=== PATIENT | male | born 1955 | race Caucasian/White ===

== ENCOUNTER 2016-12-21 12:09 | Emergency (ER) | payer BC ==
[~2016-12-21] VITALS: Ht 175.3 cm; Wt 149.7 kg
[~2016-12-21 12:09] MED LIST: ATORVASTATIN CA10 M1 PO; BACTRIM DS 8001 TA1 PO; CARVEDILOL6.25 M1 PO; CLINORIL GENER200 MG PO; FLEXERIL10 MG PO; FUROSEMIDE 20MG20 MG PO; HCTZ/LISINOPRIL1 TA3 PO; ISOSORBIDE MONO30 MG PO; LORTAB 5/500 501 TAB PO; NAPROSYN 500MG500 MG PO; PROAIR HFA0.09 MG/AC IH; PROVENTIL0.09 MG/A1 IH; VITAMIN E 400400 IU PO
--- NOTE | 2016-12-21 12:28 | Emergency Room Report ---
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 Clinical Suspician of Infection? Mental Status: Sepsis Risk: Have you (or family members/close friends) recently traveled outside the [place]? If Yes, where/when: Have you had exposure to infectious disease within the past month? TB? Other? Specify: Source RN notes reviewed, family, EMS Exam Limitations clinical condition Comment Brought to the ED by the [facility] from [place] ...he was at Father -in-law's home reportedly eating some bologna, sitting on couch and suddenly became unresponsive. No shaking, no incontinence of urine or bowels and when EMS arrived he had a Glucose of 186, BP was normal, O2 sat was normal but pt. was unresponsive. Given a dose of Narcan but no response from that either and was brought to this ED. Here, O2 sat is 95% on 2 L Nasal cannula, respirations are slow and unlabored, Pupils are reactive and when trying to open his eyes, there is some resistance and the eyes tend to roll back. No focal neurological defect, no upgoing toes and when trying to drop hand on face it falls to bhe top and back of his head. He does have a history of HTN and recently had a heart cath which was reportedly normal by his . Cardiac Chest Pain Chest pain indicative of cardiac No ALLERGIES Coded Allergies: No Known Allergies (12/21/16) Home Medications Active Scripts SULFAMETHOXAZOLE W/TRIMETHOPRI (Bactrim Ds Tab) 1 TAB PO BID #14 TAB Prov: 12/11/15 ALBUTEROL (Proventil Hfa Inhaler) 1-2 PUFF IH Q4-6H PRN #1 CAN Ref 5 Prov: 12/11/15 Cyclobenzaprine Hcl (Flexeril) 10 MG PO TID #15 TAB Prov: 03/23/13 Acetaminophen W/ Hydrocodone (Lortab 5/500) 1 TAB PO Q6HP #10 TAB Prov: 03/23/13 Reported Medications Vitamin E (Vitamin E 400 UNITS) 400 IUNITS PO DAILY Isosorbide Mononitrate (Isosorbide Mononitrate ER) 30 MG PO BID #60 LISINOPRIL/HYDROCHLOROTHIAZIDE (Lisinopril-Hctz 20-12.5 MG Tab) 1 TAB PO DAILY #90 Furosemide (Furosemide) 20 MG PO DAILY #90 Atorvastatin Calcium 10 MG PO QHS #90 Carvedilol 6.25 MG PO BID #180 Sulindac (Clinoril Generic 200MG Tab) 200 MG PO BID #60 Albuterol Sulfate (Proair Hfa) 1 PUFF IH Q6HP PRN BREATHING #9 History Medical History General Angina: No OR: No Hypertension? Yes Hyperlipidemia? Yes CHF? No DVT? No PE? No COPD? No Asthma? No Anemia? No Gastric ulcers? Yes Hernia? Yes Thyroid Problems? No Hypothyroidism? No CVA? No Seizures? No Diabetes? No End Stage Renal Disease? No UTI? No Stones? No BPH? No GB Disease: No Nephritic Syndrome? No Asplenia? No Hepatitis? No Sickle Cell Disease? No Arthritis? No Migraines? No Cataracts? No Glaucoma? No MRSA? No TB? No Anxiety? No Depression? No Cancer? No More? No Immunization Hx DT/Tetanus 5-10 YRS Flu NEVER Pneumonia NEVER Surgical Hx Previous Surgery?Y HERNIA REPAIR c TUBE PLAC 2 INGROWN TOENAIL REMOVED HEART CATH Family History Family Hx Diabetes Yes CAD Yes Hypertension Yes Hyperlipidemia Yes Cancer Yes TB No Social History Smoking Hx Packs/day N/A Alcohol Alcohol: No Review of Systems All Other Systems Reviewed and Negative Constitutional see HPI Eyes see HPI Respiratory no symptoms reported Cardiovascular see HPI Psychiatric/Neurological see HPI Physical Exam Vital Signs Vital Signs Date Time Temp Pulse Resp B/P Pulse O2 O2 Flow FiO2 Ox Delivery Rate 12/21 1315 18 12/21 1300 70 20 128/79 98 2 12/21 1230 97.8 66 18 151/79 100 (Aminah PINTO,Chau) General Appearance no apparent distress, obese Eye Exam - bilateral eye PERRL, bilateral eye EOMI, bilateral eye other (corneal reflex positive) Respiratory Status No: respiratory distress. Lung Sounds bilateral: normal breath sounds. Cardiovascular normal exam, regular rate/rhythm Rectal normal rectal tone, Rectal temp=97.6 Neurologic pt. does not respond to verbal stimuli nor chest rub but I can not detect any focal motor deficit. No decerebrate or decorticate posturing Medical Decision Making LABS/Meds/Orders Pt receiving controlled substance in ED? No Results/Orders Laboratory Tests 12/21/16 1305: ABG pH 7.35, ABG pCO2 (Temp Corrct 42.0, ABG pO2 (Temp Correct 45.0 *L, ABG HCO3 23.0, ABG Total CO2 24.0, ABG O2 Sat (Calculated) 82 *L, ABG Base Excess -2.9 L , Christian Test ACCEPTABLE, Blood Gas Comments LEFT RADIAL 12/21/16 1230: Sodium 140, Potassium 4.9, Chloride 106, Carbon Dioxide 30, BUN 18, Creatinine 1.3, Estimated Creat Clear 130, Estimated GFR (MDRD) 57, Glucose 138 H, Calcium 9.2, Total Bilirubin 0.5, AST 43 H, ALT 68, Alkaline Phosphatase 73, Creatine Kinase 71, CK-MB (CK-2) Rel Index 1.0, CK and CKMB Interp 0.7, Troponin I < 0.02 , Total Protein 7.3, Albumin 3.3 L, Globulin 4.0 H, Albumin/Globulin Ratio 0.8 L, PT 11.1, INR 1.04, APTT 21.9 L, WBC 8.4, RBC 4.81, Hgb 16.2, Hct 56.8 H, MCV 117.2 H, RDW 15.5, Plt Count 264, MPV 12.7 H, Gran % 67.9, Gran # 5.7, Lymphocytes % 19.0, Monocytes % 6.0, Eosinophils % 5.7, Basophils % 1.4, Lymphocytes # 1.6, Monocytes # 0.5, Eosinophils # 0.5 H, Basophils # 0.1, PUBS MCHC 28.7 L, MCH 33.7 H, Opiates Screen NEGATIVE, Urine Methadone Screen NEGATIVE, Barbiturates NEGATIVE, Phencyclidine Screen NEGATIVE, Amphetamines Screen NEGATIVE, Benzodiazepines Screen NEGATIVE, Cocaine Screen NEGATIVE, Marijuana (THC) Screen NEGATIVE, Urine Color YELLOW, Urine Appearance CLEAR, Urine pH 6.0, Ur Specific [place] 1.015, Urine Protein NEGATIVE, Urine Ketones NEGATIVE, Urine Blood NEGATIVE, Urine Nitrate NEGATIVE, Urine Bilirubin NEGATIVE , Urine Urobilinogen 0.2, Ur Leukocyte Esterase NEGATIVE, Urine RBC OCC, Urine WBC NONE, Ur Squamous Epith Cells NONE, Urine Bacteria TRACE, Hyaline Casts OCC, Urine Glucose NEGATIVE Current Medication Orders Sig/Buck Start time Last Medication Dose Route Stop Time Status Admin Aspirin 324 MG ONCE ONE 12/21 1315 DC PO 12/21 1316 Nitroglycerin 0.4 MG [id number] PRN 12/21 1315 AC 12/21 SL 1315 Aspirin 0 .STK-MED ONE 12/21 1311 DC .ROUTE Nitroglycerin 0 .STK-MED ONE 12/21 1311 DC SL Sodium Chloride 10 ML PRN PRN 12/21 1230 AC IV 12/22 1227 Orders Procedure Date/time Status DIET-NOTHING BY MOUTH 12/21 D Active ARTERIAL BLOOD GAS REQUEST 12/21 1232 Active PROTIME/PARTIAL PROTIME 12/21 1228 Complete LACTIC ACID 12/21 1228 Active DRUG ABUSE SCREEN (10) 12/21 1228 Complete CHEST-PORTABLE 12/21 1227 Active IV SALINE LOCK 12/21 1227 Active ELECTROCARDIOGRAM REQUEST 12/[address] HEAD REQ 12/21 1215 Complete URINARY CATHETER INSERT 12/21 1215 Active SEWAGE TREATMENT PLANT OPERATOR 12/21 1215 Active URINALYSIS/COMPLETE 12/21 1215 Complete CBC WITH AUTO DIFF 12/21 1215 Complete CARDIAC ENZYMES 12/21 1215 Complete CHEM 12 PROFILE 12/21 1215 Complete 12 LEAD EKG-KEELY (INITIAL) 12/21 UNK Active Departure Departure Time of Disposition 1337 Disposition Still a Patient Clinical Impression Primary Impression: Chest pain Qualifiers: Chest pain type: precordial chest pain Qualified Code: R07.2 - Precordial pain Secondary Impressions: Hypertension Qualifiers: Hypertension type: essential hypertension Qualified Code: I10 - Essential (primary) hypertension Syncope Qualifiers: 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 Brewer by Dr. Polanco Discharge Counseling Counseled pt/family regarding diagnosis, test results, follow up needs ED Critical Care Critical Care No If Critical Care minutes are documented, the time involved in the performance of seperately reportable procedures was not counted toward critical care time documented. I directly delivered medical care to this critically ill and/or injured patient. Timely evaluation and treatment was necessary to address the significant organ system(s) dysfunction present in this patient. at [id number]
[2016-12-21 12:30] VITALS: BP 151/79
[2016-12-21 12:36] LABS: LYMPH # 1.6 K/mm3 (0.7-4.5)
[2016-12-21 12:46] LABS: URINE BILIRUBIN - DIPSTICK NEGATIVE (NEG); URINE BLOOD NEGATIVE (NEG)
--- NOTE | 2016-12-21 12:51 | RADIOLOGY REPORT PS360 ---
CT HEAD W/O CONTRAST HISTORY: UNRESPONSIVE ORDERING PHYSICIAN: Chau Burr MD PATIENT AGE: 61 years COMPARISON: None TECHNIQUE: Axial images obtained without contrast. Brain and bone windows reviewed. FINDINGS: No midline shift, mass effect, intracranial hemorrhage, hydrocephalus, or extra-axial fluid collection is evident. Nonspecific hypoattenuation in the periventricular region likely related to mild ischemic gliotic change from microvascular disease. The calvarium has an unremarkable appearance. No mastoid effusion. Paranasal sinus mucosal thickening. IMPRESSION: 1. No acute intracranial pathology. 2. There is no evidence of intracranial hemorrhage, focal mass, or acute territorial infarction. A negative CT does not exclude an acute CVA. A follow-up head CT or MRI is recommended if neurological symptoms persist .
[2016-12-21 12:52] LABS: HEMOGLOBIN 16.2 g/dL (14.1-18.0)
[2016-12-21 12:56] LABS: AMPHETAMINES/METAMPHETAMINES NEGATIVE ng/mL (<1000)
[2016-12-21 13:06] LABS: BUN 18 mg/dL (7-18)
[2016-12-21 13:07] LABS: GFR (ESTIMATED) 57 ML/MIN (>60)
[2016-12-21 13:17] LABS: ALLEN'S TEST ACCEPTABLE; ARTERIAL ABE -2.9 MMOL/L (-2.4-+2.3); OXYGEN 21
--- NOTE | 2016-12-21 13:48 | RADIOLOGY REPORT PS360 ---
CHEST-PORTABLE HISTORY: UNRESPONSIVE ORDERING PHYSICIAN: Chau Burr MD PATIENT AGE: 61 years COMPARISON: 12/11/2015 FINDINGS: There are low lung volumes with underpenetration. No lobar consolidation or collapse. There is some mild pulmonary venous congestion which could be reflection of the technique and positioning. Mild CHF is considered. No evidence of pneumothorax or midline shift of the mediastinum. IMPRESSION: Limited exam with mild pulmonary venous congestion otherwise negative
[2016-12-21 16:04] LABS: ALLEN'S TEST ACCEPTABLE; ARTERIAL ABE -0.5 MMOL/L (-2.4-+2.3); ARTERIAL PO2 88.1 MMHG (80-100); ARTERIAL TCO2 26.2 MMOL/L (23-27); OXYGEN 2.5 LPM
[2016-12-21] MEDS ORDERED: CARVEDILOL6.25 MG PO (17:03)
[2016-12-21] MEDS ORDERED: K-TAB20 MEQ PO (17:04)
[2016-12-21] MEDS ORDERED: LASIX 40MG. TAB40 MG PO (17:04)
[2016-12-21] MEDS ORDERED: SALMETEROL-F28 PUFFS IN (17:04)
[2016-12-21] MEDS ORDERED: HYDROXYZINE HCL25 M1 PO (17:05)
[2016-12-21] MEDS ORDERED: NITROGLYCERIN0.4 MG SL (17:06)
[2016-12-21 17:08] LABS: CORONAVIRUS 229E NOT DETECTED (NOT DETECTE); CORONAVIRUS HKU 1 NOT DETECTED (NOT DETECTE); CORONAVIRUS NL63 NOT DETECTED (NOT DETECTE); CORONAVIRUS OC43 NOT DETECTED (NOT DETECTE); RHINOVIRUS/ENTEROVIRUS NOT DETECTED (NOT DETECTE)
--- NOTE | 2016-12-21 17:14 | HISTORY AND PHYSICAL REPORT ---
History and Physical ([facility]) Date of admission: 12/21/16 Chief complaint: AMS Past Medical History: Medical History: CAD? Yes Angina: No NE: No Hypertension? Yes Hyperlipidemia? Yes CHF? No DVT? No PE? No COPD? No Asthma? No Anemia? No Gastric ulcers? Yes Hernia? Yes Thyroid Problems? No Hypothyroidism? No CVA? No Seizures? No Diabetes? No UTI? No Stones? No BPH? No GB Disease: No Nephritic Syndrome? No Asplenia? No Hepatitis? No Sickle Cell Disease? No Arthritis? No Migraines? No Cataracts? No Glaucoma? No MRSA? No TB? No Anxiety? No Depression? No Cancer? No More? No Additional hx: 1. TIA 2. Cardiac Cath 12/2014 with nonflow limiting LAD lesion Surgical history: Previous Surgery?Y HERNIA REPAIR 2 INGROWN TOENAILS REMOVED HEART CATH Medications: Reported Medications Carvedilol (Carvedilol 6.25MG) 6.25 MG PO BID Salmeterol 50/Fluticasone 250 (Advair 250-50 Diskus) 1 PUFF IN BID Furosemide (Lasix 40MG) 40 MG PO DAILY Potassium Chloride (K-Tab ER) 20 MEQ PO DAILY HYDROXYZINE HCL (Hydroxyzine HCl) 25 MG PO QID NITROGLYCERIN (Nitrostat) 0.4 MG SL [id number] PRN CHEST PAIN Isosorbide Mononitrate (Isosorbide Mononitrate ER) 30 MG PO BID #60 Atorvastatin Calcium 10 MG PO QHS #90 Albuterol Sulfate (Proair Hfa) 1 PUFF IH Q6HP PRN BREATHING #9 Allergies: Coded Allergies: No Known Allergies (12/21/16) Family History: Family history: Postive for: CAD, HTN, stroke. Social History: Smoking Hx Tobacco: Yes Smoker: Unknown if Ever Smoked Type: Chew Packs/day: N/A Are you exposed to second hand Yes Alcohol: Alcohol: No Hx of Drug Use: Drug Use? No Physical Exam: Vital signs: 1ST Vital Signs Result Date Time Pulse Ox 100 12/21 1230 B/P 151/79 12/21 1230 Temp 97.8 12/21 1230 Pulse 66 12/21 1230 Resp 18 12/21 1230 O2 Flow Rate 2 01/27 1300 Lab data: Labs: Laboratory Tests 12/21/16 1604: ABG pH 7.37, ABG pCO2 (Temp Corrct 44.4, ABG pO2 (Temp Correct 88.1, ABG HCO3 24.9, ABG Total CO2 26.2, ABG O2 Sat (Calculated) 96.5, ABG Base Excess -0.5, Christian Test ACCEPTABLE, Blood Gas Comments L RADIAL 12/21/16 1425: Lactic Acid 1.3 12/21/16 1305: ABG pH 7.35, ABG pCO2 (Temp Corrct 42.0, ABG pO2 (Temp Correct 45.0 *L, ABG HCO3 23.0, ABG Total CO2 24.0, ABG O2 Sat (Calculated) 82 *L, ABG Base Excess -2.9 L , Christian Test ACCEPTABLE, Blood Gas Comments LEFT RADIAL 12/21/16 1230: B-Natriuretic Peptide 35 12/21/16 1230: Sodium 140, Potassium 4.9, Chloride 106, Carbon Dioxide 30, BUN 18, Creatinine 1.3, Estimated Creat Clear 130, Estimated GFR (MDRD) 57, Glucose 138 H, Calcium 9.2, Total Bilirubin 0.5, AST 43 H, ALT 68, Alkaline Phosphatase 73, Creatine Kinase 71, CK-MB (CK-2) Rel Index 1.0, CK and CKMB Interp 0.7, Troponin I < 0.02 , Total Protein 7.3, Albumin 3.3 L, Globulin 4.0 H, Albumin/Globulin Ratio 0.8 L, PT 11.1, INR 1.04, APTT 21.9 L, WBC 8.4, RBC 4.81, Hgb 16.2, Hct 56.8 H, MCV 117.2 H, RDW 15.5, Plt Count 264, MPV 12.7 H, Gran % 67.9, Gran # 5.7, Lymphocytes % 19.0, Monocytes % 6.0, Eosinophils % 5.7, Basophils % 1.4, Lymphocytes # 1.6, Monocytes # 0.5, Eosinophils # 0.5 H, Basophils # 0.1, PUBS MCHC 28.7 L, MCH 33.7 H, Opiates Screen NEGATIVE, Urine Methadone Screen NEGATIVE, Barbiturates NEGATIVE, Phencyclidine Screen NEGATIVE, Amphetamines Screen NEGATIVE, Benzodiazepines Screen NEGATIVE, Cocaine Screen NEGATIVE, Marijuana (THC) Screen NEGATIVE, Urine Color YELLOW, Urine Appearance CLEAR, Urine pH 6.0, Ur Specific [place] 1.015, Urine Protein NEGATIVE, Urine Ketones NEGATIVE, Urine Blood NEGATIVE, Urine Nitrate NEGATIVE, Urine Bilirubin NEGATIVE , Urine Urobilinogen 0.2, Ur Leukocyte Esterase NEGATIVE, Urine RBC OCC, Urine WBC NONE, Ur Squamous Epith Cells NONE, Urine Bacteria TRACE, Hyaline Casts OCC, Urine Glucose NEGATIVE Radiology results: Results: Head CT IMPRESSION: 1. No acute intracranial pathology. 2. There is no evidence of intracranial hemorrhage, focal mass, or acute territorial infarction. A negative CT does not exclude an acute CVA. A follow-up head CT or MRI is recommended if neurological symptoms persist CXR IMPRESSION: Limited exam with mild pulmonary venous congestion otherwise negative Diagnosis(es): 1. Syncope 2. Hypertension Screen NEGATIVE, Benzodiazepines Screen NEGATIVE, Cocaine Screen NEGATIVE, Marijuana (THC) Screen NEGATIVE, Urine Color YELLOW, Urine Appearance CLEAR, Urine pH 6.0, Ur Specific [place] 1.015, Urine Protein NEGATIVE, Urine Ketones NEGATIVE, Urine Blood NEGATIVE, Urine Nitrate NEGATIVE, Urine Bilirubin NEGATIVE , Urine Urobilinogen 0.2, Ur Leukocyte Esterase NEGATIVE, Urine RBC OCC, Urine WBC NONE, Ur Squamous Epith Cells NONE, Urine Bacteria TRACE, Hyaline Casts OCC, Urine Glucose NEGATIVE Radiology results: Results: Head CT IMPRESSION: 1. No acute intracranial pathology. 2. There is no evidence of intracranial hemorrhage, focal mass, or acute territorial infarction. A negative CT does not exclude an acute CVA. A follow-up head CT or MRI is recommended if neurological symptoms persist CXR IMPRESSION: Limited exam with mild pulmonary venous congestion otherwise negative Diagnosis(es): 1. Syncope 2. Hypertension Plan: Pt has been restarted on most of his home medications. The ER has ordered an MRI of the brain and C-spine.
--- NOTE | 2016-12-21 18:34 | RADIOLOGY REPORT PS360 ---
MRI-BRAIN W/WO HISTORY: Unresponsive, limited limited movement PT FOUND UNRESPONSIVE, LIMITED LIMB MOVEMENT ORDERING PHYSICIAN: Herb Brewer MD PATIENT AGE: 61 years COMPARISON: 07/02/2016 TECHNIQUE: Standard multiplanar multiecho sequences are performed without and with gadolinium enhancement . FINDINGS: No midline shift, mass effect, intracranial hemorrhage, or hydrocephalus. No restricted diffusion. No evidence of acute infarction. No abnormal enhancement. There are scattered periventricular and subcortical T2 white matter hyperintensities bilaterally are nonspecific. These do not enhance and do not show a straight the diffusion. Differential diagnosis would include ischemic gliotic change from microvascular disease, migraine headache, or even demyelinating process. The cerebellopontine angles, cerebellum, and brainstem are unremarkable. There is mild mucosal thickening of the maxillary sinuses and ethmoid sinuses. IMPRESSION: 1. No acute intracranial pathology. No significant change from 07/02/2016 2. Scattered periventricular and subcortical T2 white matter hyperintensities without enhancement or strictures effusion. These may represent ischemic gliotic foci for microvascular disease, sequela from migraines headache or other vasculitis, or demyelinating process. 3. Mild paranasal sinus disease
--- NOTE | 2016-12-21 18:38 | RADIOLOGY REPORT PS360 ---
MRI-C-SPINE W/WO, MRI-3D RENDERING/MYELOGRAM CLINICAL INDICATION: Limited limited movement PT FOUND UNRESPONSIVE, LIMITED LIMB MOVEMENT ORDERING PHYSICIAN: Herb Brewer MD PATIENT AGE: 61 years TECHNIQUE: Routine multiplanar multiecho sequences are performed without and with contrast. COMPARISON: 08/30/2009 FINDINGS: There is somewhat limited technically due to motion artifact. There is normal alignment.. Cannot adequately evaluate the C-spine from the C3 to the C7 level due to the motion artifact. No large extradural or epidural masses are evident. No obvious cord compression or canal stenosis. No large enhancing lesions evident. Bulging disc are present at C3-C4 C4-C5 and C5-C6. IMPRESSION: Very limited exam due to motion artifact. Normal alignment with no large epidural defects evident. Suggest repeat exam when patient can better tolerate. Mild bulging disc is noted at C3-C4 C4-C5 and C5-C6.
--- NOTE | 2016-12-21 19:01 | Emergency Room Report ---
History of Present Illness Time Seen by MD López ALLERGIES Coded Allergies: No Known Allergies (12/21/16) Home Medications Reported Medications Carvedilol (Carvedilol 6.25MG) 6.25 MG PO BID Salmeterol 50/Fluticasone 250 (Advair 250-50 Diskus) 1 PUFF IN BID Furosemide (Lasix 40MG) 40 MG PO DAILY Potassium Chloride (K-Tab ER) 20 MEQ PO DAILY HYDROXYZINE HCL (Hydroxyzine HCl) 25 MG PO QID NITROGLYCERIN (Nitrostat) 0.4 MG SL [id number] PRN CHEST PAIN Isosorbide Mononitrate (Isosorbide Mononitrate ER) 30 MG PO BID #60 Atorvastatin Calcium 10 MG PO QHS #90 Albuterol Sulfate (Proair Hfa) 1 PUFF IH Q6HP PRN BREATHING #9 History Medical History General CAD? Yes Angina: No IA: No Hypertension? Yes Hyperlipidemia? Yes CHF? No DVT? No PE? No COPD? No Asthma? No Anemia? No Gastric ulcers? Yes Hernia? Yes Thyroid Problems? No Hypothyroidism? No CVA? No Seizures? No Diabetes? No End Stage Renal Disease? No UTI? No Stones? No BPH? No GB Disease: No Nephritic Syndrome? No Asplenia? No Hepatitis? No Sickle Cell Disease? No Arthritis? No Migraines? No Cataracts? No Glaucoma? No MRSA? No TB? No Anxiety? No Depression? No Cancer? No More? No Additional hx: 1. TIA 2. Cardiac Cath 12/2014 with nonflow limiting LAD lesion Immunization Hx Ped.Immunizations UTD Yes DT/Tetanus 5-10 YRS Flu NEVER Pneumonia NEVER Surgical Hx Previous Surgery?Y HERNIA REPAIR c TUBE PLAC 2 INGROWN TOENAIL REMOVED HEART CATH Family History Family Hx Diabetes Yes CAD Yes Hypertension Yes Hyperlipidemia Yes Cancer Yes TB No Social History Smoking Hx Smoker: Unknown if Ever Smoked Tobacco: Yes Type Chew Packs/day N/A Are you/the child exposed to second-hand smoke: Yes Alcohol Alcohol: No Review of Systems All Other Systems Reviewed and Negative Physical Exam Vital Signs Vital Signs Date Time Temp Pulse Resp B/P Pulse O2 O2 Flow FiO2 Ox Delivery Rate 12/21 1315 18 12/21 1300 70 20 128/79 98 2 12/21 1230 97.8 66 18 151/79 100 General Appearance normal appearance, no apparent distress, obese Respiratory Status No: respiratory distress. Cardiovascular normal exam, regular rate/rhythm Neurologic alert, pt. states he can not move from the neck down and has no sensation from the neck down Medical Decision Making LABS/Meds/Orders Pt receiving controlled substance in ED? No Results/Orders Laboratory Tests 12/21/16 1305: ABG pH 7.35, ABG pCO2 (Temp Corrct 42.0, ABG pO2 (Temp Correct 45.0 *L, ABG HCO3 23.0, ABG Total CO2 24.0, ABG O2 Sat (Calculated) 82 *L, ABG Base Excess -2.9 L , Christian Test ACCEPTABLE, Blood Gas Comments LEFT RADIAL 12/21/16 1230: B-Natriuretic Peptide 35 12/21/16 1230: Sodium 140, Potassium 4.9, Chloride 106, Carbon Dioxide 30, BUN 18, Creatinine 1.3, Estimated Creat Clear 130, Estimated GFR (MDRD) 57, Glucose 138 H, Calcium 9.2, Total Bilirubin 0.5, AST 43 H, ALT 68, Alkaline Phosphatase 73, Creatine Kinase 71, CK-MB (CK-2) Rel Index 1.0, CK and CKMB Interp 0.7, Troponin I < 0.02 , Total Protein 7.3, Albumin 3.3 L, Globulin 4.0 H, Albumin/Globulin Ratio 0.8 L, PT 11.1, INR 1.04, APTT 21.9 L, WBC 8.4, RBC 4.81, Hgb 16.2, Hct 56.8 H, MCV 117.2 H, RDW 15.5, Plt Count 264, MPV 12.7 H, Gran % 67.9, Gran # 5.7, Lymphocytes % 19.0, Monocytes % 6.0, Eosinophils % 5.7, Basophils % 1.4, Lymphocytes # 1.6, Monocytes # 0.5, Eosinophils # 0.5 H, Basophils # 0.1, PUBS MCHC 28.7 L, MCH 33.7 H, Opiates Screen NEGATIVE, Urine Methadone Screen NEGATIVE, Barbiturates NEGATIVE, Phencyclidine Screen NEGATIVE, Amphetamines Screen NEGATIVE, Benzodiazepines Screen NEGATIVE, Cocaine Screen NEGATIVE, Marijuana (THC) Screen NEGATIVE, Urine Color YELLOW, Urine Appearance CLEAR, Urine pH 6.0, Ur Specific [place] 1.015, Urine Protein NEGATIVE, Urine Ketones NEGATIVE, Urine Blood NEGATIVE, Urine Nitrate NEGATIVE, Urine Bilirubin NEGATIVE , Urine Urobilinogen 0.2, Ur Leukocyte Esterase NEGATIVE, Urine RBC OCC, Urine WBC NONE, Ur Squamous Epith Cells NONE, Urine Bacteria TRACE, Hyaline Casts OCC, Urine Glucose NEGATIVE 12/21/16 0600: B-Natriuretic Peptide Cancelled Current Medication Orders Sig/Buck Start time Last Medication Dose Route Stop Time Status Admin Aspirin 324 MG ONCE ONE 12/21 1315 DC PO 12/21 1316 Nitroglycerin 0.4 MG [id number] PRN 12/21 1315 AC 12/21 SL 1315 Aspirin 0 .STK-MED ONE 12/21 1311 DC .ROUTE Nitroglycerin 0 .STK-MED ONE 12/21 1311 DC SL Sodium Chloride 10 ML PRN PRN 12/21 1230 AC IV 12/22 1227 Orders Procedure Date/time Status Decision to admit 12/21 1341 Active ARTERIAL BLOOD GAS REQUEST 12/21 1232 Active PROTIME/PARTIAL PROTIME 12/21 1228 Complete LACTIC ACID 12/21 1228 Complete DRUG ABUSE SCREEN (10) 12/21 1228 Complete IV SALINE LOCK 12/21 1227 Active ELECTROCARDIOGRAM REQUEST 12/[address] HEAD REQ 12/21 1215 Complete URINARY CATHETER INSERT 12/21 1215 Active WIRE COATING OPERATOR METAL 12/21 1215 Active URINALYSIS/COMPLETE 12/21 1215 Complete CBC WITH AUTO DIFF 12/21 1215 Complete CARDIAC ENZYMES 12/21 1215 Complete CHEM 12 PROFILE 12/21 1215 Complete 12 LEAD EKG-KEELY (INITIAL) 12/21 UNK Active Departure Departure Time of Disposition 1855 Disposition DC/XFER from ER to 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 Brewre by Dr. Polanco but pt. then complained of not being able to move arms or legs and could not feel anything from neck down....I stuck him in several places with a needle and he did not flinch. I called Neurology and spoke with Dr. Lindo on Neurology and she asked for a CT or MRI of the neck and we obtained an MRI of the neck and also the brain with contrast and they are both read as negative. Dr. Lindo called back and agreed to transfer pt. to the ED for further evaluation Discharge Counseling Counseled pt/family regarding diagnosis, test results, follow up needs ED Critical Care Critical Care No If Critical Care minutes are documented, the time involved in the performance of seperately reportable procedures was not counted toward critical care time documented. I directly delivered medical care to this critically ill and/or injured patient. Timely evaluation and treatment was necessary to address the significant organ system(s) dysfunction present in this patient. at 1900
[2016-12-21 19:33] VITALS: BP 111/72
== END 2016-12-21 19:34 | disposition short-term general hospital (02) ==
LOC: ER 12:09 → 2ND 13:43 → ER 19:34
PROVIDERS: Family Medicine; General Practice
DX: R07.2 Precordial pain (principal); I10 Essential (primary) hypertension; F48.8 Other specified nonpsychotic mental disorders; G61.0 Guillain-Barre syndrome; F44.9 Dissociative and conversion disorder, unspecified; F17.220 Nicotine dependence, chewing tobacco, uncomplicated; I25.10 Atherosclerotic heart disease of native coronary artery without angina pectoris
CPT/HCPCS: A9576

== ENCOUNTER → 2017-01-14 | Outpatient (CLI) | payer BC ==
[~2017-01-14] MED LIST changes: +CARVEDILOL6.25 MG PO; +HYDROXYZINE HCL25 M1 PO; +K-TAB20 MEQ PO; +LASIX 40MG. TAB40 MG PO; +NITROGLYCERIN0.4 MG SL; +SALMETEROL-F28 PUFFS IN
--- NOTE | 2017-01-14 13:40 | CARDIOVASCULAR REPORT ---
"Cerebrovascular Exam Indications: 780.2 Syncope and collapse. 435.9 Unspecified transient cerebral ischemia. IMPRESSIONS 1. The bilateral vertebral arteries are patent with normal antegrade flow. 2. Study suggests less than 20% stenosis involving the right internal carotid artery and the left internal carotid artery. No change from the study of 04-Jun-2016. History: Risk factors: Hypertension. Carotid duplex study. Complete study and Doppler flow study including spectral analysis, color and gonzales scale imaging. Height: Height: 175.3cm. Height: 69in. Weight: Weight: 147kg. Weight: 323.3lb. Body mass index: BMI: 47.8kg/m^2. Body surface area: BSA: 2.75m^2. Location: Vascular laboratory. Patient status: Outpatient. Tables: Arterial flow: + +--------+--------+ |Location |V sys |V ed | + +--------+--------+ |Right CCA - proximal|84.9cm/s|18.1cm/s| + +--------+--------+ |Right CCA - distal |66cm/s |18.9cm/s| + +--------+--------+ |Right ECA |73.9cm/s|--------| + +--------+--------+ |Right ICA - proximal|60.5cm/s|21.2cm/s| + +--------+--------+ |Right ICA - mid |88.8cm/s|33cm/s | + +--------+--------+ |Right ICA - distal |56.6cm/s|22cm/s | + +--------+--------+ |Right vertebral |33cm/s |--------| + +--------+--------+ |Left CCA - proximal |116cm/s |25.1cm/s| + +--------+--------+ |Left CCA - distal |82.5cm/s|22cm/s | + +--------+--------+ |Left ECA |65.2cm/s|--------| + +--------+--------+ |Left ICA - proximal |84.9cm/s|16.5cm/s| + +--------+--------+ |Left ICA - mid |71.5cm/s|23.6cm/s| + +--------+--------+ |Left ICA - distal |69.9cm/s|29.1cm/s| + +--------+--------+ |Left vertebral |31.4cm/s|--------| + +--------+--------+ Velocity ratios: + + + + + + | |Right, V sys|Right, V ed|Left, V sys|Left, V ed| + + + + + + |Max ICA/dist CCA|1.35 |1.75 |1.03 |1.32 | + + + + + + (Report amended ) Electronically signed by: Cristhian Benitez [id number]"
== END ==
LOC: RT 01-11 13:00
DX: R55 Syncope and collapse (principal); R40.4 Transient alteration of awareness

== ENCOUNTER 2017-03-19 13:28 | Observation (INO) | payer BC ==
[~2017-03-19] VITALS: Ht 175.3 cm; Wt 148.8 kg
[~2017-03-19 13:28] MED LIST changes: -PROAIR HFA0.09 MG/AC IH; +VENTOLIN H0.09 MG/AC IH
[2017-03-19 13:31] VITALS: BP 135/76
[2017-03-19 14:16] LABS: HEMOGLOBIN 14.9 g/dL (14.1-18.0); LYMPH # 2.2 K/mm3 (0.7-4.5); LYMPH % 34.1 % (10-50)
--- NOTE | 2017-03-19 14:22 | RADIOLOGY REPORT PS360 ---
CHEST-PORTABLE HISTORY: Chest pain with shortness of breath CP ORDERING PHYSICIAN: Jack Yoon MD PATIENT AGE: 61 years COMPARISON: None available FINDINGS: The study is underpenetrated. Taking this into consideration, the cardiovascular structures are unremarkable. No definite lobar consolidation or collapse.. IMPRESSION: No definite acute finding
[2017-03-19 14:39] LABS: BUN 15 mg/dL (7-18); GFR (ESTIMATED) 76 ML/MIN (>60)
--- NOTE | 2017-03-19 15:19 | Emergency Room Report ---
History of Present Illness Time Seen by MD Gallegos Presenting Problem in Triage Pt arrived:Wheelchair Presenting Problem:PT HAD TO BE ASSISTED OUT OF CAR D/T C/O CP THAT BEGAN ABOUT A HOUR AGO. PT STATES THAT HE TOOK 2 NITRO THAT HAS HELPED RELIEVE THE PAIN SOME. PT ADVISES THE PAIN JUST FEELS LIKE IT IS DRAINING HIM. 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 N Clinical Suspician of Infection? N Mental Status: 1 - Regular (Normal Baseline) Sepsis Risk:Low Sepsis Risk Have you (or family members/close friends) recently traveled outside the [place]? N If Yes, where/when: Have you had exposure to infectious disease within the past month? N TB? Other? Specify: Comment The patient complains of chest pain. He says that about 3 hours ago he had used O to remove some thistles and then developed chest pain in the center of his chest. He denies shortness of breath but states that neighbor described him as gasping for breath. He denies nausea or diaphoresis. He says he had previous chest pain like this 2-3 years ago and had an angiogram done here. He carries nitroglycerin since then. He used 2 nitroglycerin today which helped. Now his pain is very minimal almost gone. His dry pan operator is Dr. Welsh. ALLERGIES Coded Allergies: No Known Allergies (12/21/16) Home Medications Reported Medications Carvedilol (Carvedilol 6.25MG) 6.25 MG PO BID Salmeterol 50/Fluticasone 250 (Advair 250-50 Diskus) 1 PUFF IN BID Furosemide (Lasix 40MG) 40 MG PO DAILY Potassium Chloride (K-Tab ER) 20 MEQ PO DAILY HYDROXYZINE HCL (Hydroxyzine HCl) 25 MG PO QID NITROGLYCERIN (Nitrostat) 0.4 MG SL [id number] PRN CHEST PAIN Isosorbide Mononitrate (Isosorbide Mononitrate ER) 30 MG PO BID #60 Atorvastatin Calcium 10 MG PO QHS #90 Albuterol Sulfate (Proair Hfa) 1 PUFF IH Q6HP PRN BREATHING #9 History Medical History General CAD? Yes Angina: No [place]: No Hypertension? Yes Hyperlipidemia? Yes CHF? No DVT? No PE? No COPD? No Asthma? No Anemia? No GERD? No Gastric ulcers? Yes GI Bleed? No Hernia? Yes Thyroid Problems? No Hypothyroidism? No CVA? No Seizures? No Diabetes? No End Stage Renal Disease? No UTI? No Stones? No BPH? No GB Disease: No Nephritic Syndrome? No Asplenia? No Hepatitis? No Sickle Cell Disease? No Arthritis? No Migraines? No Cataracts? No Glaucoma? No MRSA? No HIV? No TB? No Anxiety? No Depression? No Cancer? No More? No Additional hx: 1. TIA 2. Cardiac Cath 12/2014 with nonflow limiting LAD lesion Immunization Hx DT/Tetanus 5-10 YRS Flu NEVER Pneumonia NEVER Surgical Hx Previous Surgery?Y HERNIA REPAIR c TUBE PLAC 2 INGROWN TOENAIL REMOVED HEART CATH Family History Family Hx Diabetes Yes CAD Yes Hypertension Yes Hyperlipidemia Yes Cancer Yes TB No Social History Smoking Hx Smoker: Current Every Day Smoker Tobacco: Yes Type Chew Packs/day N/A Alcohol Alcohol: No Additionial History Additional History Cardiac cath 01/06/15 Mild, uln-rgyb-rypjqvzk coronary artery disease involving the proximal left anterior descending. Review of Systems All Other Systems Reviewed and Negative Constitutional denies diaphoresis, denies fever Respiratory see HPI Cardiovascular chest pain Gastrointestinal denies nausea, denies vomiting Physical Exam Vital Signs Vital Signs Date Time Temp Pulse Resp B/P Pulse O2 O2 Flow FiO2 Ox Delivery Rate 03/19 1604 66 18 118/66 95 03/19 1521 89 16 126/71 95 3 03/19 1402 75 16 120/80 95 2 03/19 1331 98.5 89 92 135/76 92 General Appearance obese Eye Exam - bilateral eye normal exam, bilateral eye PERRL, bilateral eye EOMI Ear, Nose, Throat hearing grossly normal, normal ENT inspection Neck normal inspection, non-tender, supple, full range of motion Respiratory Status Yes: trachea midline, chest symmetrical, non tender chest. No: respiratory distress. Lung Sounds bilateral: normal breath sounds, lungs clear. Cardiovascular normal exam, regular rate/rhythm, no peripheral edema, no gallop, no JVD, no murmur, no rub, normal peripheral pulses Peripheral Pulses Pulses normal Yes Gastrointestinal normal bowel sounds, normal exam, non tender, soft, no organomegaly Extremities non-tender, normal range of motion, normal inspection Neurologic alert, machine marker II-XII nml as tested, normal exam, oriented x 3 Mental status normal mood/affect Skin intact, normal color, warm/dry Medical Decision Making LABS/Meds/Orders Pt receiving controlled substance in ED? No Results/Orders Laboratory Tests 03/19/17 1405: Sodium 140, Potassium 3.8, Chloride 105, Carbon Dioxide 27, BUN 15, Creatinine 1.0, Estimated Creat Clear 167, Estimated GFR (MDRD) 76, Glucose 107 H, Calcium 9.2, Total Bilirubin 0.4, AST 52 H, ALT 88 H, Alkaline Phosphatase 71, Creatine Kinase 88, CK-MB (CK-2) Rel Index 0.6, CK and CKMB Interp < 0.5, Troponin I < 0.02, Total Protein 7.4, Albumin 3.3 L, Globulin 4.1 H, Albumin/ Globulin Ratio 0.8 L, WBC 6.5, RBC 4.47 L, Hgb 14.9, Hct 43.4, MCV 97.0, RDW 12.6, Plt Count 236, MPV 5.5 L, Gran % 53.4, Gran # 3.5, Lymphocytes % 34.1, Monocytes % 6.0, Eosinophils % 6.1, Basophils % 0.4, Lymphocytes # 2.2, Monocytes # 0.4, Eosinophils # 0.4, Basophils # 0.0, PUBS MCHC 34.5, MCH 33.4 H Current Medication Orders Sig/Buck Start time Last Medication Dose Route Stop Time Status Admin Aspirin 0 .STK-MED ONE 03/19 153 DC .ROUTE Nitroglycerin 0 .STK-MED ONE 03/19 1531 DC .ROUTE Aspirin 324 MG ONCE ONE 03/19 1530 DC 03/19 PO 03/19 1531 1532 Nitroglycerin 1 IN ONCE ONE 03/19 1530 DC 03/19 TP 03/19 1531 1532 Sodium Chloride 10 ML PRN PRN 03/19 1330 AC IV 03/20 1330 Orders Procedure Date/time Status ELECTROCARDIOGRAM REQUEST 03/19 1330 Active IV SALINE LOCK 03/19 1330 Active BRAND MARKETING MANAGER 03/19 1330 Active CBC WITH AUTO DIFF 03/19 1330 Complete CARDIAC ENZYMES 03/19 1330 Complete CHEM 12 PROFILE 03/19 1330 Complete 12 LEAD EKG-KEELY (INITIAL) 03/19 UNK Active CM/EKG CM/EKG Comments EKG interpreted by Jack Yoon MD: Rhythm: sinus Rate: 74 [place]: normal Ectopy: none Conduction: First-degree AV block ST Segment Changes: none T Wave Changes: none Q Waves: none No evidence of acute ischemia or injury Baseline artifact present, but I consider the EKG adequate for accurate interpretation. Progress - 3:45 PM: I have discussed the case with Dr. Brewer who agrees to admit the patient to the hospital. We discussed the patient's clinical information, including history, exam, laboratory and radiology results and ED course. Per hospital procedure, I will write temporary bridge inpatient orders on the patient. Specific orders requested by the admitting physician: Consult Dr. Welsh. Serial cardiac enzymes. Nitro paste. 4:20 PM: Pernell is here evaluating the patient for Dr. Welsh. Departure Departure Disposition Still a Patient Clinical Impression Primary Impression: Chest pain Qualifiers: Chest pain type: precordial pain Qualified Code: R07.2 - Precordial pain Condition STABLE Referrals Herb Brewer MD (Family) ED Critical Care Critical Care No
--- NOTE | 2017-03-19 15:19 | Emergency Room Report ---
History of Present Illness Time Seen by MD Gallegos Presenting Problem in Triage Pt arrived:Wheelchair Presenting Problem:PT HAD TO BE ASSISTED OUT OF CAR D/T C/O CP THAT BEGAN ABOUT A HOUR AGO. PT STATES THAT HE TOOK 2 NITRO THAT HAS HELPED RELIEVE THE PAIN SOME. PT ADVISES THE PAIN JUST FEELS LIKE IT IS DRAINING HIM. 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 N Clinical Suspician of Infection? N Mental Status: 1 - Regular (Normal Baseline) Sepsis Risk:Low Sepsis Risk Have you (or family members/close friends) recently traveled outside the [place]? N If Yes, where/when: Have you had exposure to infectious disease within the past month? N TB? Other? Specify: Comment The patient complains of chest pain. He says that about 3 hours ago he had used O to remove some thistles and then developed chest pain in the center of his chest. He denies shortness of breath but states that neighbor described him as gasping for breath. He denies nausea or diaphoresis. He says he had previous chest pain like this 2-3 years ago and had an angiogram done here. He carries nitroglycerin since then. He used 2 nitroglycerin today which helped. Now his pain is very minimal almost gone. His clerical and office support workers is Dr. Welsh. ALLERGIES Coded Allergies: No Known Allergies (12/21/16) Home Medications Reported Medications Carvedilol (Carvedilol 6.25MG) 6.25 MG PO BID Salmeterol 50/Fluticasone 250 (Advair 250-50 Diskus) 1 PUFF IN BID Furosemide (Lasix 40MG) 40 MG PO DAILY Potassium Chloride (K-Tab ER) 20 MEQ PO DAILY HYDROXYZINE HCL (Hydroxyzine HCl) 25 MG PO QID NITROGLYCERIN (Nitrostat) 0.4 MG SL [id number] PRN CHEST PAIN Isosorbide Mononitrate (Isosorbide Mononitrate ER) 30 MG PO BID #60 Atorvastatin Calcium 10 MG PO QHS #90 Albuterol Sulfate (Proair Hfa) 1 PUFF IH Q6HP PRN BREATHING #9 History Medical History General CAD? Yes Angina: No [place]: No Hypertension? Yes Hyperlipidemia? Yes CHF? No DVT? No PE? No COPD? No Asthma? No Anemia? No GERD? No Gastric ulcers? Yes GI Bleed? No Hernia? Yes Thyroid Problems? No Hypothyroidism? No CVA? No Seizures? No Diabetes? No End Stage Renal Disease? No UTI? No Stones? No BPH? No GB Disease: No Nephritic Syndrome? No Asplenia? No Hepatitis? No Sickle Cell Disease? No Arthritis? No Migraines? No Cataracts? No Glaucoma? No MRSA? No HIV? No TB? No Anxiety? No Depression? No Cancer? No More? No Additional hx: 1. TIA 2. Cardiac Cath 12/2014 with nonflow limiting LAD lesion Immunization Hx DT/Tetanus 5-10 YRS Flu NEVER Pneumonia NEVER Surgical Hx Previous Surgery?Y HERNIA REPAIR c TUBE PLAC 2 INGROWN TOENAIL REMOVED HEART CATH Family History Family Hx Diabetes Yes CAD Yes Hypertension Yes Hyperlipidemia Yes Cancer Yes TB No Social History Smoking Hx Smoker: Current Every Day Smoker Tobacco: Yes Type Chew Packs/day N/A Alcohol Alcohol: No Additionial History Additional History Cardiac cath 01/06/15 Mild, lis-mabv-dpzenkdh coronary artery disease involving the proximal left anterior descending. Review of Systems All Other Systems Reviewed and Negative Constitutional denies diaphoresis, denies fever Respiratory see HPI Cardiovascular chest pain Gastrointestinal denies nausea, denies vomiting Physical Exam Vital Signs Vital Signs Date Time Temp Pulse Resp B/P Pulse O2 O2 Flow FiO2 Ox Delivery Rate 03/19 1604 66 18 118/66 95 03/19 1521 89 16 126/71 95 3 03/19 1402 75 16 120/80 95 2 03/19 1331 98.5 89 92 135/76 92 General Appearance obese Eye Exam - bilateral eye normal exam, bilateral eye PERRL, bilateral eye EOMI Ear, Nose, Throat hearing grossly normal, normal ENT inspection Neck normal inspection, non-tender, supple, full range of motion Respiratory Status Yes: trachea midline, chest symmetrical, non tender chest. No: respiratory distress. Lung Sounds bilateral: normal breath sounds, lungs clear. Cardiovascular normal exam, regular rate/rhythm, no peripheral edema, no gallop, no JVD, no murmur, no rub, normal peripheral pulses Peripheral Pulses Pulses normal Yes Gastrointestinal normal bowel sounds, normal exam, non tender, soft, no organomegaly Extremities non-tender, normal range of motion, normal inspection Neurologic alert, merchandise team manager II-XII nml as tested, normal exam, oriented x 3 Mental status normal mood/affect Skin intact, normal color, warm/dry Medical Decision Making LABS/Meds/Orders Pt receiving controlled substance in ED? No Results/Orders Laboratory Tests 03/19/17 1405: Sodium 140, Potassium 3.8, Chloride 105, Carbon Dioxide 27, BUN 15, Creatinine 1.0, Estimated Creat Clear 167, Estimated GFR (MDRD) 76, Glucose 107 H, Calcium 9.2, Total Bilirubin 0.4, AST 52 H, ALT 88 H, Alkaline Phosphatase 71, Creatine Kinase 88, CK-MB (CK-2) Rel Index 0.6, CK and CKMB Interp < 0.5, Troponin I < 0.02, Total Protein 7.4, Albumin 3.3 L, Globulin 4.1 H, Albumin/ Globulin Ratio 0.8 L, WBC 6.5, RBC 4.47 L, Hgb 14.9, Hct 43.4, MCV 97.0, RDW 12.6, Plt Count 236, MPV 5.5 L, Gran % 53.4, Gran # 3.5, Lymphocytes % 34.1, Monocytes % 6.0, Eosinophils % 6.1, Basophils % 0.4, Lymphocytes # 2.2, Monocytes # 0.4, Eosinophils # 0.4, Basophils # 0.0, PUBS MCHC 34.5, MCH 33.4 H Current Medication Orders Sig/Buck Start time Last Medication Dose Route Stop Time Status Admin Aspirin 0 .STK-MED ONE 03/19 153 DC .ROUTE Nitroglycerin 0 .STK-MED ONE 03/19 1531 DC .ROUTE Aspirin 324 MG ONCE ONE 03/19 1530 DC 03/19 PO 03/19 1531 1532 Nitroglycerin 1 IN ONCE ONE 03/19 1530 DC 03/19 TP 03/19 1531 1532 Sodium Chloride 10 ML PRN PRN 03/19 1330 AC IV 03/20 1330 Orders Procedure Date/time Status ELECTROCARDIOGRAM REQUEST 03/19 1330 Active IV SALINE LOCK 03/19 1330 Active AUTHORIZATION COORDINATOR 03/19 1330 Active CBC WITH AUTO DIFF 03/19 1330 Complete CARDIAC ENZYMES 03/19 1330 Complete CHEM 12 PROFILE 03/19 1330 Complete 12 LEAD EKG-KEELY (INITIAL) 03/19 UNK Active CM/EKG CM/EKG Comments EKG interpreted by Jack Yoon MD: Rhythm: sinus Rate: 74 [place]: normal Ectopy: none Conduction: First-degree AV block ST Segment Changes: none T Wave Changes: none Q Waves: none No evidence of acute ischemia or injury Baseline artifact present, but I consider the EKG adequate for accurate interpretation. Progress - 3:45 PM: I have discussed the case with Dr. Brewer who agrees to admit the patient to the hospital. We discussed the patient's clinical information, including history, exam, laboratory and radiology results and ED course. Per hospital procedure, I will write temporary bridge inpatient orders on the patient. Specific orders requested by the admitting physician: Consult Dr. Welsh. Serial cardiac enzymes. Nitro paste. 4:20 PM: Pernell is here evaluating the patient for Dr. Welsh. Departure Departure Disposition Still a Patient Clinical Impression Primary Impression: Chest pain Qualifiers: Chest pain type: precordial pain Qualified Code: R07.2 - Precordial pain Condition STABLE Referrals Herb Brewer MD (Family) ED Critical Care Critical Care No
[2017-03-19 16:12] VITALS: BP 118/66
[2017-03-19] MEDS ORDERED: DIAZEPAM2 M1 PO (16:43)
[2017-03-19] MEDS ORDERED: PREDNISONE 5MG.5 MG PO (16:43)
[2017-03-19] MEDS ORDERED: IPRATROPIUM BROM3 M1 IH (16:43)
--- NOTE | 2017-03-19 16:49 | CONSULT NOTE ---
Standard Demographics Patient Demo Date of Consultation: 03/19/17 Referring Provider: Dimple Brewer MD Reason for Consultation: chest pain PRIMARY DIAGNOSIS: CHEST PAIN Problem list Problem list: 1. Mild CAD by cardiac cath, 12/2014 2. HTN 3. Hyperlipidemia 4. Morbid obesity 5. First degree A-V block by electrocardiogram. History of present illness: History of present illness: 61-year-old white male seen in the emergency department today for acute onset of substernal chest discomfort while cutting some milk thistle out in his yard. Patient to 2 sublingual nitroglycerin with gradual relief. He did come to the emergency department at which time his pain was still present and was placed on nitro paste and which has since resolved his symptoms. He had no diaphoresis, radiation of pain, nausea or vomiting. His neighbor and his relates that he was short of breath but patient minimizes this. Electrocardiogram is sinus with first-degree AV block and unremarkable for acute change. Initial troponin is normal. Cardiology consulted for recommendations. Past Medical History: General: Hypertension Yes CVA No Seizures No TB No COPD No Asthma No Diabetes No Angina No [place] No Hyperlipidemia Yes Urinary No Cancer No Rheumatic H.D. No Ulcers No MRSA No GB Disease No Additional hx 1. TIA 2. Cardiac Cath 12/2014 with nonflow limiting LAD lesion Past Surgical HX: Previous Surgery?Y HERNIA REPAIR c TUBE PLAC 2 INGROWN TOENAIL REMOVED HEART CATH Allergies Coded Allergies: No Known Allergies (12/21/16) Home medications: Reported Medications Carvedilol (Carvedilol 6.25MG) 6.25 MG PO BID Salmeterol 50/Fluticasone 250 (Advair 250-50 Diskus) 1 PUFF IN BID Furosemide (Lasix 40MG) 40 MG PO DAILY Potassium Chloride (K-Tab ER) 20 MEQ PO DAILY HYDROXYZINE HCL (Hydroxyzine HCl) 25 MG PO QID NITROGLYCERIN (Nitrostat) 0.4 MG SL [id number] PRN CHEST PAIN Diazepam 2 MG PO BID #90 Prednisone (Prednisone 5MG) 5 MG PO BID #43 ALBUTEROL-IPRATROPIUM (Iprat-Albut 0.5-3(2.5) MG/3 Ml) 3 ML IH Q2HP PRN ASTHMA #360 Isosorbide Mononitrate (Isosorbide Mononitrate ER) 30 MG PO BID #60 Atorvastatin Calcium 10 MG PO QHS #90 Albuterol Sulfate (Proair Hfa) 1 PUFF IH Q6HP PRN BREATHING #9 Current Medications: Current Medications Furosemide 40 MG DAILY PO (UNV) Atorvastatin Calcium 10 MG QHS PO (UNV) Carvedilol 6.25 MG BID PO (UNV) Nitroglycerin 1 IN Q6 TP (UNV) Nicotine 21 MG DAILYP PRN TD (UNV) Nitroglycerin 0.4 MG [id number] PRN SL (UNV) Sodium Chloride 10 ML PRN PRN IV (UNV) Aspirin 0 .STK-MED ONE .ROUTE (DC) Nitroglycerin 0 .STK-MED ONE .ROUTE (DC) Aspirin 324 MG ONCE ONE PO (DC) Nitroglycerin 1 IN ONCE ONE TP (DC) Sodium Chloride 10 ML PRN PRN IV Immunization HX DT/Tetanus 5-10 YRS AGO Flu NEVER Pneumonia NEVER TB Test in last year No Family history Family HX Family Hx Insignificant No Diabetes Yes CAD Yes Hypertension Yes Hyperlipidemia Yes Cancer Yes TB No Social Hx: Smoking HX Tobacco Yes Type CHEW Packs/day N/A Are you/the child exposed to second-hand smoke: No Alcohol Alcohol: No Hx of Drug Use Drug Use? No Patien't marital status is Patient's support system is good Review of systems: Constitutional No: no symptoms reported. Respiratory cough, SOB with excertion. Cardiovascular see HPI, chest pain Gastrointestinal/Abdominal No no symptoms reported Genitourinary No: no symptoms reported. Musculoskeletal back pain. Neurological No: no symptoms reported. Exam: Admission Vital Signs: 1ST Vital Signs Result Date Time Pulse Ox 92 03/19 1331 B/P 135/76 03/19 1331 Temp 98.5 03/19 1331 Pulse 89 03/19 1331 Resp 92 03/19 1331 O2 Flow Rate 2 03/19 1402 O2 Delivery ROOM AIR 03/19 1612 Last Vital Signs: Vital Signs Result Date Time Pulse Ox 97 03/19 1639 B/P 119/61 03/19 1639 Pulse 83 03/19 1639 Resp 16 03/19 1639 Temp 98.5 03/19 1612 O2 Delivery ROOM AIR 03/19 1612 O2 Flow Rate 3 03/19 1521 Exam General appearance: alert, awake, no acute distress Neck: no carotid bruit, no JVD Cardiovascular: regular rate & rhythm, no murmur Respiratory: decreased breath sounds bilaterally with some mild expiratory wheezing. Patient does have a cough that is nonproductive. ABD: soft, no tenderness Extremities: nonpitting edema of lower extremities noted. Neuro: alert, intact, oriented, speech clear Laboratory data: Laboratory Tests 03/19/17 1405: Sodium 140, Potassium 3.8, Chloride 105, Carbon Dioxide 27, BUN 15, Creatinine 1.0, Estimated Creat Clear 167, Estimated GFR (MDRD) 76, Glucose 107 H, Calcium 9.2, Total Bilirubin 0.4, AST 52 H, ALT 88 H, Alkaline Phosphatase 71, Creatine Kinase 88, CK-MB (CK-2) Rel Index 0.6, CK and CKMB Interp < 0.5, Troponin I < 0.02, Total Protein 7.4, Albumin 3.3 L, Globulin 4.1 H, Albumin/ Globulin Ratio 0.8 L, WBC 6.5, RBC 4.47 L, Hgb 14.9, Hct 43.4, MCV 97.0, RDW 12.6, Plt Count 236, MPV 5.5 L, Gran % 53.4, Gran # 3.5, Lymphocytes % 34.1, Monocytes % 6.0, Eosinophils % 6.1, Basophils % 0.4, Lymphocytes # 2.2, Monocytes # 0.4, Eosinophils # 0.4, Basophils # 0.0, PUBS MCHC 34.5, MCH 33.4 H Plan: Assessment: 1. Chest pain with exertion resolved after sublingual nitroglycerin X 2. Concern for angina pectoris. No initial electrocardiogram changes with normal troponin. 2. Mild coronary disease by cardiac cath December 2014. 3. Hypertension 4. Hyperlipidemia 5. Morbid obesity Recommendations: 1. Continue aspirin and nitroglycerin paste. 2. Observation overnight with serial cardiac enzymes. 3. If troponins normal 3 then proceed with [email or web address] tomorrow. 4. Obtain echocardiogram to evaluate LV size and function. at 1706
--- NOTE | 2017-03-19 16:54 | HISTORY AND PHYSICAL REPORT ---
History and Physical ([facility]CA) Date of admission: 03/19/17 Chief complaint: Chest Pain History: History of Present Illness: Mr. Rolle is a 61yo male with a hx of HTN, TIA, and a hx of a cardiac cath with a nonflow limiting LAD lesion. 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 He states he was doing yard work today around 12:30pm and began having midsternal CP. He took two nitro and came to the ER. A nitro patch was placed and the CP has now resolved. Cardiology has been consults. He states he did get slightly SOA along with the CP but this has resolved as well. He denies any other associated symptoms. Past Medical History: Medical History: CAD? Yes Angina: No CO: No Hypertension? Yes Hyperlipidemia? Yes CHF? No DVT? No PE? No COPD? No Asthma? No Anemia? No GERD? No Gastric ulcers? Yes GI Bleed? No Hernia? Yes Thyroid Problems? No Hypothyroidism? No CVA? No Seizures? No Diabetes? No UTI? No Stones? No BPH? No GB Disease: No Nephritic Syndrome? No Asplenia? No Hepatitis? No Sickle Cell Disease? No Arthritis? No Migraines? No Cataracts? No Glaucoma? No MRSA? No HIV? No TB? No Anxiety? No Depression? No Cancer? No More? No Additional hx: 1. TIA 2. Cardiac Cath 12/2014 with nonflow limiting LAD lesion Surgical history: Previous Surgery?Y HERNIA REPAIR 2 INGROWN TOENAIL REMOVED HEART CATH Medications: Reported Medications Carvedilol (Carvedilol 6.25MG) 6.25 MG PO BID Salmeterol 50/Fluticasone 250 (Advair 250-50 Diskus) 1 PUFF IN BID Furosemide (Lasix 40MG) 40 MG PO DAILY Potassium Chloride (K-Tab ER) 20 MEQ PO DAILY HYDROXYZINE HCL (Hydroxyzine HCl) 25 MG PO QID NITROGLYCERIN (Nitrostat) 0.4 MG SL [id number] PRN CHEST PAIN Diazepam 2 MG PO BID #90 Prednisone (Prednisone 5MG) 5 MG PO BID #43 ALBUTEROL-IPRATROPIUM (Iprat-Albut 0.5-3(2.5) MG/3 Ml) 3 ML IH Q2HP PRN ASTHMA #360 Isosorbide Mononitrate (Isosorbide Mononitrate ER) 30 MG PO BID #60 Atorvastatin Calcium 10 MG PO QHS #90 Albuterol Sulfate (Proair Hfa) 1 PUFF IH Q6HP PRN BREATHING #9 Allergies: Coded Allergies: No Known Allergies (12/21/16) Family History: Family history: Postive for: CAD, HTN, cancer, hyperlipidemia, stroke. Negative for: DM. Social History: Smoking Hx Tobacco: Yes Smoker: Never Smoker Type: Chew Packs/day: N/A Are you exposed to second hand No Alcohol: Alcohol: No Hx of Drug Use: Drug Use? No Review of Systems: Constitutional No: fatigue, lethargy, malaise, weak. ENT No: nasal congestion, sore throat. Cardiovascular Positive for: chest pain. No: edema, palpitations. Respiratory Positive for: shortness of air. No: productive cough (sputum), wheezing. GI No: abdominal pain, diarrhea, nausea, vomitting. (male) No: frequency, hematuria. Neurological No: dizziness, headache, syncope, weakness. Musculoskeletal No: extremity pain, joint pain, myalgias. Physical Exam: Vital signs: 1ST Vital Signs Result Date Time Pulse Ox 92 03/19 1331 B/P 135/76 03/19 1331 Temp 98.5 03/19 1331 Pulse 89 03/19 1331 Resp 92 03/19 1331 O2 Flow Rate 2 03/19 1402 O2 Delivery ROOM AIR 03/19 1612 Exam: General appearance: alert, awake, no acute distress Eyes: EOM's w/normal ROM, PERRLA ENT: mucous membranes moist, nose normal, pharynx normal, tympanic membranes normal Neck: non-tender, no carotid bruit, full range of motion, supple Cardiovascular: regular rate & rhythm Respiratory: clear to auscultation, diminished breath sounds ABD: non-distended, normal bowel sounds, no rebound, soft, no tenderness, no guarding Extremities: trace pretibial edema bilaterally Musculoskeletal: equal muscle strength, motor intact, sensation intact Skin: no gross abnormalities 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, normal mood/affect, oriented, speech clear Lab data: Labs: Laboratory Tests 03/19/17 1405: Sodium 140, Potassium 3.8, Chloride 105, Carbon Dioxide 27, BUN 15, Creatinine 1.0, Estimated Creat Clear 167, Estimated GFR (MDRD) 76, Glucose 107 H, Calcium 9.2, Total Bilirubin 0.4, AST 52 H, ALT 88 H, Alkaline Phosphatase 71, Creatine Kinase 88, CK-MB (CK-2) Rel Index 0.6, CK and CKMB Interp < 0.5, Troponin I < 0.02, Total Protein 7.4, Albumin 3.3 L, Globulin 4.1 H, Albumin/ Globulin Ratio 0.8 L, WBC 6.5, RBC 4.47 L, Hgb 14.9, Hct 43.4, MCV 97.0, RDW 12.6, Plt Count 236, MPV 5.5 L, Gran % 53.4, Gran # 3.5, Lymphocytes % 34.1, Monocytes % 6.0, Eosinophils % 6.1, Basophils % 0.4, Lymphocytes # 2.2, Monocytes # 0.4, Eosinophils # 0.4, Basophils # 0.0, PUBS MCHC 34.5, MCH 33.4 H Radiology results: Results: CXR - nothing acute Diagnosis(es): 1. Chest pain Status: Acute 2. Hypertension Status: Chronic Plan: Will continue aspirin and nitroglycerin paste. He will be admitted for observation overnight with serial cardiac enzymes. Cardiology to see the patient. (Candy Manzo) Date of admission: 03/19/17 Diagnosis(es): 1. Chest pain Status: Acute 2. Hypertension Status: Chronic Plan: Pt seen and examined. He is pain free now. Enzymes negative thus far. Cardiology consult noted. Plan for echo and cardiolyte tomorrow if enzymes negative. (Yusef Polanco MD) at [phone] at [phone]
--- NOTE | 2017-03-19 16:54 | HISTORY AND PHYSICAL REPORT ---
History and Physical ([facility]CA) Date of admission: 03/19/17 Chief complaint: Chest Pain History: History of Present Illness: Mr. Rolle is a 61yo male with a hx of HTN, TIA, and a hx of a cardiac cath with a nonflow limiting LAD lesion. 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 He states he was doing yard work today around 12:30pm and began having midsternal CP. He took two nitro and came to the ER. A nitro patch was placed and the CP has now resolved. Cardiology has been consults. He states he did get slightly SOA along with the CP but this has resolved as well. He denies any other associated symptoms. Past Medical History: Medical History: CAD? Yes Angina: No NC: No Hypertension? Yes Hyperlipidemia? Yes CHF? No DVT? No PE? No COPD? No Asthma? No Anemia? No GERD? No Gastric ulcers? Yes GI Bleed? No Hernia? Yes Thyroid Problems? No Hypothyroidism? No CVA? No Seizures? No Diabetes? No UTI? No Stones? No BPH? No GB Disease: No Nephritic Syndrome? No Asplenia? No Hepatitis? No Sickle Cell Disease? No Arthritis? No Migraines? No Cataracts? No Glaucoma? No MRSA? No HIV? No TB? No Anxiety? No Depression? No Cancer? No More? No Additional hx: 1. TIA 2. Cardiac Cath 12/2014 with nonflow limiting LAD lesion Surgical history: Previous Surgery?Y HERNIA REPAIR 2 INGROWN TOENAIL REMOVED HEART CATH Medications: Reported Medications Carvedilol (Carvedilol 6.25MG) 6.25 MG PO BID Salmeterol 50/Fluticasone 250 (Advair 250-50 Diskus) 1 PUFF IN BID Furosemide (Lasix 40MG) 40 MG PO DAILY Potassium Chloride (K-Tab ER) 20 MEQ PO DAILY HYDROXYZINE HCL (Hydroxyzine HCl) 25 MG PO QID NITROGLYCERIN (Nitrostat) 0.4 MG SL [id number] PRN CHEST PAIN Diazepam 2 MG PO BID #90 Prednisone (Prednisone 5MG) 5 MG PO BID #43 ALBUTEROL-IPRATROPIUM (Iprat-Albut 0.5-3(2.5) MG/3 Ml) 3 ML IH Q2HP PRN ASTHMA #360 Isosorbide Mononitrate (Isosorbide Mononitrate ER) 30 MG PO BID #60 Atorvastatin Calcium 10 MG PO QHS #90 Albuterol Sulfate (Proair Hfa) 1 PUFF IH Q6HP PRN BREATHING #9 Allergies: Coded Allergies: No Known Allergies (12/21/16) Family History: Family history: Postive for: CAD, HTN, cancer, hyperlipidemia, stroke. Negative for: DM. Social History: Smoking Hx Tobacco: Yes Smoker: Never Smoker Type: Chew Packs/day: N/A Are you exposed to second hand No Alcohol: Alcohol: No Hx of Drug Use: Drug Use? No Review of Systems: Constitutional No: fatigue, lethargy, malaise, weak. ENT No: nasal congestion, sore throat. Cardiovascular Positive for: chest pain. No: edema, palpitations. Respiratory Positive for: shortness of air. No: productive cough (sputum), wheezing. GI No: abdominal pain, diarrhea, nausea, vomitting. (male) No: frequency, hematuria. Neurological No: dizziness, headache, syncope, weakness. Musculoskeletal No: extremity pain, joint pain, myalgias. Physical Exam: Vital signs: 1ST Vital Signs Result Date Time Pulse Ox 92 03/19 1331 B/P 135/76 03/19 1331 Temp 98.5 03/19 1331 Pulse 89 03/19 1331 Resp 92 03/19 1331 O2 Flow Rate 2 03/19 1402 O2 Delivery ROOM AIR 03/19 1612 Exam: General appearance: alert, awake, no acute distress Eyes: EOM's w/normal ROM, PERRLA ENT: mucous membranes moist, nose normal, pharynx normal, tympanic membranes normal Neck: non-tender, no carotid bruit, full range of motion, supple Cardiovascular: regular rate & rhythm Respiratory: clear to auscultation, diminished breath sounds ABD: non-distended, normal bowel sounds, no rebound, soft, no tenderness, no guarding Extremities: trace pretibial edema bilaterally Musculoskeletal: equal muscle strength, motor intact, sensation intact Skin: no gross abnormalities 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, normal mood/affect, oriented, speech clear Lab data: Labs: Laboratory Tests 03/19/17 1405: Sodium 140, Potassium 3.8, Chloride 105, Carbon Dioxide 27, BUN 15, Creatinine 1.0, Estimated Creat Clear 167, Estimated GFR (MDRD) 76, Glucose 107 H, Calcium 9.2, Total Bilirubin 0.4, AST 52 H, ALT 88 H, Alkaline Phosphatase 71, Creatine Kinase 88, CK-MB (CK-2) Rel Index 0.6, CK and CKMB Interp < 0.5, Troponin I < 0.02, Total Protein 7.4, Albumin 3.3 L, Globulin 4.1 H, Albumin/ Globulin Ratio 0.8 L, WBC 6.5, RBC 4.47 L, Hgb 14.9, Hct 43.4, MCV 97.0, RDW 12.6, Plt Count 236, MPV 5.5 L, Gran % 53.4, Gran # 3.5, Lymphocytes % 34.1, Monocytes % 6.0, Eosinophils % 6.1, Basophils % 0.4, Lymphocytes # 2.2, Monocytes # 0.4, Eosinophils # 0.4, Basophils # 0.0, PUBS MCHC 34.5, MCH 33.4 H Radiology results: Results: CXR - nothing acute Diagnosis(es): 1. Chest pain Status: Acute 2. Hypertension Status: Chronic Plan: Will continue aspirin and nitroglycerin paste. He will be admitted for observation overnight with serial cardiac enzymes. Cardiology to see the patient. (Candy Manzo) Date of admission: 03/19/17 Diagnosis(es): 1. Chest pain Status: Acute 2. Hypertension Status: Chronic Plan: Pt seen and examined. He is pain free now. Enzymes negative thus far. Cardiology consult noted. Plan for echo and cardiolyte tomorrow if enzymes negative. (Yusef Polanco MD) at 1657 at [phone]
[2017-03-19 17:11] VITALS: BP 150/96
[2017-03-19 20:31] VITALS: BP 118/65
[2017-03-19 21:49] VITALS: BP 118/65
[2017-03-20 00:16] VITALS: BP 119/50
[2017-03-20 04:30] VITALS: BP 127/70
[2017-03-20 07:51] VITALS: BP 127/70
[2017-03-20 07:59] VITALS: BP 133/81
--- NOTE | 2017-03-20 08:03 | ACUTE CARE PROGRESS NOTE (QUA) ---
See Addendum Progress Notes Subjective Date 03/20/17 Time 0759 Note 61 yo WM in bed in NAD. No complaint of chest pain overnight. Echo in progress now. Objective Findings Last VS-Temp:97.9 B/P:127/70 Pulse:76 Resp:18 SaO2:94 ROOM AIR Last weight lbs:328 oz:0 K.780 Method:Bed Scales Exam General appearance: alert, awake, no acute distress Cardiovascular: regular rate & rhythm Respiratory: clear to auscultation Extremities: moves all, edema Reviewed: medications, vital signs, lab results Assessment/Plan Problem List 1. Chest pain Status: Acute Assessment/Plan: Troponins normal X 3. Will proceed with Digidentityan myoview today. Qualifiers: Chest pain type: precordial pain Qualified Code: R07.2 - Precordial pain 2. Hypertension Status: Chronic Patient condition Stable Plan: Check echo and stress results later today. If no ischemia or significant echo abnormalities then ok for discharge home. This inpt stay is expected to cross 2 MNs from start of care Yes at 0922
--- NOTE | 2017-03-20 08:07 | PHARMACY CLINIC NOTE ---
Patient Demographics Patient Demographics Admission date: 03/19/17 Date: 03/20/17 Time: 0806 Allergies Coded Allergies: No Known Allergies (12/21/16) HEIGHT- FT: 5 IN: 9.00 K.780 VTE General Information Labs: Laboratory Tests 03/19 1405 Hematology Hgb (14.1 - 18.0 g/dL) 14.9 Hct (42.0 - 52.0 %) 43.4 Plt Count (142 - 424 K/mm3) 236 Disclaimer The following section includes nursing documentation that has been pulled in for pharmacy review. Patient's VTE score: 2 Patient's VTE Risk: VERY LOW RISK Clinical trial participant? No VTE prophylaxis [id number] VTE prophylaxis ordered? Yes Type of prophylaxis/treatment: AVINASH at 0806
--- NOTE | 2017-03-20 08:11 | ACUTE CARE PROGRESS NOTE (QUA) ---
Progress Notes Subjective Date 03/20/17 Time 0809 Note Pt states CP has not returned. He denies any SOA this am. He said he could not sleep last night. He is NPO today for a stress test. Objective Findings Last VS-Temp:98.0 B/P:133/81 Pulse:71 Resp:18 SaO2:90 ROOM AIR Last weight lbs:328 oz:0 K.780 Method:Bed Scales Laboratory Tests 03/20/17 0150: Creatine Kinase 70, CK-MB (CK-2) Rel Index 0.7, CK and CKMB Interp < 0.5, Troponin I < 0.02 03/19/17 2210: Creatine Kinase 80, CK-MB (CK-2) Rel Index 0.6, CK and CKMB Interp 0.5, Troponin I < 0.02 03/19/17 1914: Creatine Kinase 80, CK-MB (CK-2) Rel Index 0.9, CK and CKMB Interp 0.7, Troponin I < 0.02 03/19/17 1405: Sodium 140, Potassium 3.8, Chloride 105, Carbon Dioxide 27, BUN 15, Creatinine 1.0, Estimated Creat Clear 167, Estimated GFR (MDRD) 76, Glucose 107 H, Calcium 9.2, Total Bilirubin 0.4, AST 52 H, ALT 88 H, Alkaline Phosphatase 71, Creatine Kinase 88, CK-MB (CK-2) Rel Index 0.6, CK and CKMB Interp < 0.5, Troponin I < 0.02, Total Protein 7.4, Albumin 3.3 L, Globulin 4.1 H, Albumin/ Globulin Ratio 0.8 L, WBC 6.5, RBC 4.47 L, Hgb 14.9, Hct 43.4, MCV 97.0, RDW 12.6, Plt Count 236, MPV 5.5 L, Gran % 53.4, Gran # 3.5, Lymphocytes % 34.1, Monocytes % 6.0, Eosinophils % 6.1, Basophils % 0.4, Lymphocytes # 2.2, Monocytes # 0.4, Eosinophils # 0.4, Basophils # 0.0, PUBS MCHC 34.5, MCH 33.4 H Exam General appearance: alert, awake, no acute distress Cardiovascular: regular rate & rhythm Respiratory: diminished breath sounds ABD: non-distended, normal bowel sounds, no rebound, soft, no tenderness, no guarding Extremities: trace pretibial edema bilaterally Assessment/Plan Problem List 1. Chest pain Status: Acute 2. Hypertension Status: Chronic Plan: Cardiac enzymes have all been normal. Scheduled for a stress test today. If normal, cardiology feels patient can be discharged. This inpt stay is expected to cross 2 MNs from start of care No at 0811
[2017-03-20] MEDS ORDERED: CLOPIDOGREL75 M1 PO (09:53)
[2017-03-20] MEDS ORDERED: CARVEDILOL6.25 MG PO (09:55)
[2017-03-20] MEDS ORDERED: ADULT LOW DOSE81 MG PO (09:58)
[2017-03-20 11:49] VITALS: BP 144/82
--- NOTE | 2017-03-20 15:09 | RADIOLOGY REPORT PS360 ---
History and Indications: Coronary artery disease, hypertension, hyperlipidemia chest pain. Procedure: Patient received 0.4 mg of Lexiscan, resting heart rate was 83 bpm resting blood pressure 109/57, with Lexiscan maximum heart rate achieved was 98 bpm is less than 85 the maximum predicted heart rate and the blood pressure was 66/55, with Lexiscan patient complained of shortness of breath and faint feeling. Electrocardiogram: Resting echocardiogram showed sinus rhythm, Lexiscan there is less than 1.[address] segment depression noted from the baseline EKG. The EKG portion of the Lexiscan is nondiagnostic. Cardiac stress and resting SPECT images: Cardiac stress and resting SPECT were obtained technetium 99 Myoview 10.6 mCi at rest, and 32.3 mCi at stress, gated SPECT further analysis of segmental wall motion and calculation of the ejection fraction was also done. Cardiac stress and resting SPECT images show mild fixed defect in the apex and inferior wall with normal contractility in the gated SPECT is likely secondary to soft tissue attenuation, no reversible ischemia seen. Computer derived ejection fraction is 80% with no obvious regional wall motion abnormality. Right ventricle is mildly enlarged with normal contractility. Conclusion: 1. The EKG portion of the Lexiscan is nondiagnostic. 2. No obvious scintigraphic evidence of reversible ischemia seen, computer derived ejection fraction 60% with no obvious regional wall motion abnormality, right ventricle is mildly enlarged with normal contractility.
--- NOTE | 2017-03-20 16:01 | RADIOLOGY REPORT PS360 ---
PROCEDURE: 2-D M-mode and color Doppler study INDICATIONS FOR THE TEST: Chest pain X COPD Heart Murmur Tobacco Smoking Palpitations Fatigue Syncope Edema HypertensionXDiabetes Mellitus Rheumatic Fever SOB MENDIOLA ObesityXHyperlipidemia Family History HD Additional History PATIENT INFORMATION HEIGHT: 69 WEIGHT:328 GENDER: Male B/P:135/76 2-D/M-MODE INTERPRETATION: 2-D MEASUREMENTS OBSERVED VALUES IN CMS Right Ventricular Dimension (RVDd) 2.8 Interventricular Septum (Thickness)(IVsd) 1.0 Left Ventricular Internal Dimensions(LVIDd) 4.8 Left Ventricular Posterior Wall (Thickness)(LVPWd) 1.1 Aortic Root 3.7 Aortic Cusp Separation 1.9 Left Atrial Dimensions (LAD) 2.9 2D 1. Left atrium is qualitatively mildly enlarged, left ventricle is normal size, mild concentric left ventricular hypertrophy present, visually estimated ejection fraction 55% with no obvious regional wall motion abnormality. 2. The right atrium is normal size, right ventricle is mildly enlarged with normal contractility. 3. The aortic valve is minimally thickened and calcified there is no aortic stenosis. 4. The mitral and tricuspid valve is structurally normal. 5. The pulmonic valve is not well visualized. 6. No significant pericardial effusion noted. DOPPLER INTERROGATION: Doppler interrogation of the aortic mitral and tricuspid valvular presence of mild mitral and tricuspid regurgitation, tricuspid regurgitant jet velocity insufficient for calculation of the right ventricular systolic pressure, grade 1 diastolic dysfunction seen without tissue Doppler evidence of raised left atrial pressure. CONCLUSION: 1. Normal left ventricular size, mild concentric left ventricular hypertrophy present visually estimated ejection fraction 55% with no obvious regional wall motion abnormality, grade 1 diastolic dysfunction seen without tissue Doppler evidence of raised left atrial pressure. 2. Mildly enlarged right ventricle with normal contractility. 3. Mild mitral and tricuspid regurgitation. 4. No significant pericardial effusion noted.
[2017-03-20 17:13] VITALS: BP 144/82
== END 2017-03-20 17:30 | disposition home or self-care (01) ==
LOC: ER 13:28 → 2ND 16:08
PROVIDERS: Emergency Medicine
DX: R07.9 Chest pain, unspecified (principal); I10 Essential (primary) hypertension
CPT/HCPCS: A9502; G0378; J2785